=== PATIENT | female | born 1990 | race Caucasian/White ===

== ENCOUNTER 2022-10-25 08:24 | Outpatient (CLI) | payer OTHER | END 2022-10-25 12:17 | disposition home or self-care (01) | LOC: PRENATAL 08:24 | PROVIDERS: ATTEND Obstetrics & Gynecology Maternal & Fetal Medicine | DX: O36.80X0 Pregnancy with inconclusive fetal viability, not applicable or unspecified (principal); Z36.9 Encounter for antenatal screening, unspecified; Z3A.12 12 weeks gestation of pregnancy ==

== ENCOUNTER 2022-12-20 08:11 | Outpatient (CLI) | payer OTHER | END 2022-12-20 10:11 | disposition home or self-care (01) | LOC: PRENATAL 08:11 | PROVIDERS: ATTEND Obstetrics & Gynecology Maternal & Fetal Medicine | DX: O35.3XX0 Maternal care for (suspected) damage to fetus from viral disease in mother, not applicable or unspecified (principal); O44.00 Complete placenta previa NOS or without hemorrhage, unspecified trimester; Z3A.20 20 weeks gestation of pregnancy ==

== ENCOUNTER 2023-03-08 09:28 | Outpatient (CLI) | payer OTHER | END 2023-03-08 09:29 | disposition home or self-care (01) | LOC: PRENATAL 09:28 | PROVIDERS: ATTEND Obstetrics & Gynecology Maternal & Fetal Medicine | DX: O26.849 Uterine size-date discrepancy, unspecified trimester (principal); O36.8199 Decreased fetal movements, unspecified trimester, other fetus; Z3A.32 32 weeks gestation of pregnancy ==

== ENCOUNTER 2023-03-13 10:00 | Inpatient (IN) | payer OTHER ==
[~2023-03-13] VITALS: Ht 157.5 cm; Wt 2.7 kg
[2023-05-02] MEDS ORDERED: RINGERS SOLUTION,LACTATED 1,000 ML IV SCH (17:15)
[2023-05-02] MEDS ORDERED: PRENATABS RX T1 EACH PO (17:26)
[2023-05-02 17:47] LABS: INR < 0.93; PARTIAL THROMBOPLASTIN TIME 28.5 SECONDS (22.0-34.0); PROTHROMBIN TIME 9.3 SECONDS (9.0-11.5)
[2023-05-02 17:52] LABS: ALBUMIN 3.4 gm/dL (3.4-5.0); BILIRUBIN TOTAL 0.31 mg/dL (0.3-1.2); CALCIUM 9.4 mg/dL (8.5-10.1); CREATININE SERUM 0.73 mg/dL (0.55-1.02); GFR 91.26; GLOBULINA 4.2 G/DL (2.4-3.5); POTASSIUM 4.31 mEq/L (3.5-5.1); TOTAL PROTEIN 7.6 gm/dL (6.4-8.2)
[2023-05-02] MEDS ORDERED: VANCOMYCIN HCL 1,000 MG VIAL IV ONE (18:30)
[2023-05-03] MEDS ORDERED: OXYTOCIN 500 ML IV SCH (05:00)
[2023-05-03] MEDS ORDERED: VANCOMYCIN HCL 1,000 MG VIAL IV SCH (06:15)
[2023-05-03] MEDS ORDERED: TERBUTALINE SULFATE 1 MG/ML AMPUL ONE (06:47)
[2023-05-03] MEDS ORDERED: OXYTOCIN 10 UNITS/ML VIAL ONE ×2 (06:50→11:00)
[2023-05-03] MEDS ORDERED: ERYTHROMYCIN BASE 3.5 GM OINT...G. OP ONE (06:51)
[2023-05-03] MEDS ORDERED: TERBUTALINE SULFATE 1 MG/ML AMPUL IV STA (07:02)
[2023-05-03] MEDS ORDERED: OXYTOCIN 10 UNITS/ML VIAL IV SCH (08:00)
[2023-05-03] MEDS ORDERED: ERYTHROMYCIN BASE 1 GM TUBE OP SCH (08:00)
[2023-05-03] MEDS ORDERED: FF) RHO(D) IMMUNE GLOBULIN (POM) IM SCH (08:15)
[2023-05-03] MEDS ORDERED: MORPHINE SULFATE 4 MG/ML CARTRIDGE IV PRN (08:15)
[2023-05-03] MEDS ORDERED: OXYTOCIN 1,000 ML IV SCH (08:15)
[2023-05-03] MEDS ORDERED: ONDANSETRON HCL 2 MG/ML VIAL IV PRN (08:15)
[2023-05-03] MEDS ORDERED: KETOROLAC TROMETHAMINE 30 MG VIAL IV PRN (08:30)
[2023-05-03] MEDS ORDERED: FAMOTIDINE/PF 20 MG/2 ML VIAL IV SCH (09:00)
[2023-05-03] MEDS ORDERED: CLINDAMYCIN PHOSPHATE 150 MG/ML (900mg) IV SCH ×2 (09:00→13:00)
[2023-05-03 09:02] LABS: ABG PH 7.222 (7.35-7.45); ABG PO2 6.8 mmHg (80-100); ABG pCO2 54.4 mmHg (35-45); BASE EXCESS -6.4 mmol/l
[2023-05-03 09:05] LABS: BICARBONATE 21.9 mmol/l (23-25); Tco2 23.5 mmol/l; o2 21 %
[2023-05-03] MEDS ORDERED: FAMOTIDINE/PF 20 MG/2 ML VIAL ONE (09:16)
[2023-05-03] MEDS ORDERED: CLINDAMYCIN PHOSPHATE 150 MG/ML (900mg) ONE (09:36)
[2023-05-03] MEDS ORDERED: KETOROLAC TROMETHAMINE 30 MG VIAL ONE (10:57)
[2023-05-03 13:56] LABS: HEMATOCRIT 33.6 % (36.0-45.00); HEMOGLOBIN 11.5 g/dL (12.0-15.00); MEAN CELL VOLUME 85.1 fL (80.00-100.00); MEAN CORPUSCULAR HEMOGLOBIN 29.2 pg (27.00-32.0); MEAN CORPUSCULAR HGB CONC 34.4 g/dl (32.0-36.0); PLATELET COUNT 192 K/uL (150-450); RED BLOOD COUNT 3.94 M/uL (4.00-6.00)
[2023-05-04] MEDS ORDERED: SIMETHICONE 125 MG CAPSULE PO SCH (14:55)
[2023-05-04] MEDS ORDERED: IBUprofen 800 MG TABLET PO PRN (15:00)
[2023-05-04] MEDS ORDERED: ACETAMINOPHEN 325 MG TABLET PO PRN (15:00)
[2023-05-04] MEDS ORDERED: DOCUSATE SODIUM 100MG CAP PO SCH (17:00)
== END 2023-05-05 15:03 | disposition home or self-care (01) | DRG 788 ==
LOC: ADM 10:00 → EDSTATUS 10:00 → LDR 05-02 14:48 → OB/GYN 05-03 07:28
PROVIDERS: ADMIT General Practice; ATTEND General Practice
PROC: 4A1HXCZ Monitoring of Products of Conception, Cardiac Rate, External Approach (ICD-10-PCS; 2023-05-02)
PROC: 10D00Z1 Extraction of Products of Conception, Low, Open Approach (ICD-10-PCS; principal; 2023-05-03 07:00)
DX: O42.02 Full-term premature rupture of membranes, onset of labor within 24 hours of rupture (principal); O36.8330 Maternal care for abnormalities of the fetal heart rate or rhythm, third trimester, not applicable or unspecified; Z3A.40 40 weeks gestation of pregnancy; Z37.0 Single live birth; Z20.822 Contact with and (suspected) exposure to COVID-19

== ENCOUNTER 2023-04-08 09:38 | Outpatient (CLI) | payer OTHER | END 2023-04-08 09:40 | disposition home or self-care (01) | LOC: PRENATAL 09:38 | PROVIDERS: ATTEND Obstetrics & Gynecology Maternal & Fetal Medicine | DX: O26.849 Uterine size-date discrepancy, unspecified trimester (principal); O36.8199 Decreased fetal movements, unspecified trimester, other fetus; O36.5990 Maternal care for other known or suspected poor fetal growth, unspecified trimester, not applicable or unspecified; Z3A.36 36 weeks gestation of pregnancy ==

== ENCOUNTER 2023-05-01 14:43 | Outpatient (CLI) | payer OTHER ==
[2023-05-02] MEDS ORDERED: PRENATABS RX T1 EACH PO (17:26)
== END 2023-05-01 15:24 | disposition home or self-care (01) ==
LOC: NST 14:43
PROVIDERS: ATTEND General Practice
DX: Z34.83 Encounter for supervision of other normal pregnancy, third trimester (principal)